=== PATIENT | female | born 1975 | race African-American/Black ===

== ENCOUNTER 2017-07-18 09:12 | Emergency (ER) | payer SELFPAY ==
[~2017-07-18 09:12] MED LIST: CLON-352 PO
[2017-07-18 09:17] VITALS: BP 179/114; PULSE 92; RESP 16; TEMP 99.1; O2SAT 99
--- NOTE | 2017-07-18 09:44 | RADRPT ---
EXAM DATE/TIME: 07/18/2017 09:28 [place] COMPARISON: No previous studies available for comparison. INDICATIONS : Cough and chest pain. MEDICAL HISTORY : None. SURGICAL HISTORY : None. ENCOUNTER: Initial ACUITY: 3 days PAIN SCORE: 6/10 LOCATION: Bilateral chest FINDINGS: PA and lateral views of the chest demonstrate the lungs to be symmetrically aerated without evidence of mass, infiltrate or effusion. The cardiomediastinal contours are unremarkable. Osseous structure s are intact. CONCLUSION: No acute cardiopulmonary disease. Rudolph Kitchen MD on July 18, 2017 at 9:41 Board Certified Radiologist. This report was verified electronically.
[2017-07-18] MEDS ORDERED: cloNIDine HCL 0.2 MG TAB PO ONE (10:15)
--- NOTE | 2017-07-18 10:30 | PD ---
HPI Chief Complaint: Cold / Flu Symptoms Time Seen by Provider: 10:01 Travel History International Travel<30 days: No Contact w/Intl Traveler<30days: No Traveled to known affect area: No History of Present Illness HPI The patient was seen and examined in the presence of the nurse. This patient complains of cough and congestion and body aches. Symptom severity is moderate. Duration 3 days. She has history of hypertension. She is been a bit noncompliant with her lisinopril and did not take it yesterday or today. Blood pressure 184/93. No alleviating factors. Blood pressure exacerbated by her noncompliance of treatment. PFSH Past Medical History Anemia: Yes Asthma: Yes Diminished Hearing: No GERD: Yes Headaches: Yes Hypertension: Yes : 1 Miscarriage: 2 Ectopic : Yes (STATES RIGHT TUBE REMOVED) Past Surgical History Other Surgery: Yes (RIGHT FALLOPIAN TUBE REMOVAL) Social History Alcohol Use: Yes (SOCIALLY) Tobacco Use: No Substance Use: No Allergies-Medications (Allergen,Severity, Reaction): Coded Allergies: No Known Allergies (Verified Allergy, Unknown, 07/18/17) Reported Meds & Prescriptions Reported Meds & Active Scripts Active Review of Systems General / Constitutional: Positive: Fever Eyes: No: Visual changes HENT: No: Headaches Cardiovascular: No: Chest Pain or Discomfort Respiratory: Positive: Cough, No: Shortness of Breath Gastrointestinal: No: Abdominal Pain Genitourinary: No: Dysuria Musculoskeletal: Positive: Myalgias, No: Pain Skin: No Rash Neurologic: No: Weakness Psychiatric: No: Depression Endocrine: No: Polydipsia Hematologic/Lymphatic: No: Easy Bruising Physical Exam Narrative GENERAL: Well-nourished, well-developed patient in no apparent distress. SKIN: Focused skin assessment reveals no rash and nodules. Skin is Warm and dry. HEAD: Atraumatic. Normocephalic. EYES: Pupils equal and round. No scleral icterus. No injection or drainage. ENT: No nasal bleeding or discharge. Mucous membranes pink and moist. NECK: Trachea midline. No JVD. CARDIOVASCULAR: Regular rate and rhythm. No murmur appreciated. RESPIRATORY: No accessory muscle use. Clear to auscultation. Breath sounds equal bilaterally. GASTROINTESTINAL: Abdomen soft, non-tender, nondistended. Hepatic and splenic margins not palpable. MUSCULOSKELETAL: No obvious deformities. No clubbing. No cyanosis. No edema. NEUROLOGICAL: Awake and alert. No obvious cranial nerve deficits. Motor grossly within normal limits. Normal speech. PSYCHIATRIC: Appropriate mood and affect; insight and judgment normal. Data Data Last Documented VS Vital Signs Date Time Temp Pulse Resp B/P (MAP) Pulse Ox O2 Delivery O2 Flow Rate FiO2 07/18/17 09:17 99.1 92 16 179/114 (135) 99 Orders Orders Influenzae A/B Antigen (07/18/17 09:19) Chest, Pa & Lat (07/18/17 ) Clonidine (Catapres) (07/18/17 10:15) MDM Medical Decision Making Medical Screen Exam Complete: Yes Emergency Medical Condition: Yes Medical Record Reviewed: Yes Differential Diagnosis Flu syndrome, bronchitis, pneumonia Narrative Course I have reviewed the patient's electronic medical record. I reviewed her chest x-ray which is normal Influenza swab was positive for influenza A Patient has accelerated hypertension. I gave her dose of clonidine. She is neurologically intact. She has medication at home I encouraged her to be compliant and to check and record her blood pressure daily. Follow-up with primary care to have this reevaluated Diagnosis Primary Impression: Influenza A Additional Impression: Accelerated hypertension Additional Instructions: Check and record blood pressure daily The patient was advised to follow up with their physician and return if they worsen. Med/Other Pt SpecificInfo: Other Disposition: 01 DISCHARGE HOME Condition: Stable Sj Mittal MD Jul 18, 2017 10:30
[2017-07-18 10:39] VITALS: BP 184/76
== END 2017-07-18 11:15 | disposition home or self-care (01) ==
LOC: NEPD 09:12
DX: J10.1 Influenza due to other identified influenza virus with other respiratory manifestations (principal); I10 Essential (primary) hypertension; J45.909 Unspecified asthma, uncomplicated; K21.9 Gastro-esophageal reflux disease without esophagitis; Z91.19 Patient's noncompliance with other medical treatment and regimen
CPT/HCPCS: 71046; 87804; 99284